=== PATIENT | male | born 1970 | race American Indian/Alaskan Native ===

== ENCOUNTER 2016-11-10 16:05 | Emergency (ER) | payer SELFPAY ==
[2016-11-10 16:28] VITALS: BP 194/105
[2016-11-10 16:45] LABS: Basophils % (Auto) 0.5 % (0.0-1.8); Eosinophils % (Auto) 0.8 % (0.0-4.3); Hematocrit 50.7 % (35.5-45.6); Hemoglobin 16.3 gm/dl (11.8-15.2); Mean Corpuscular HGB Conc 32 % (32-34); Mean Corpuscular Hemoglobin 29 pg (28-32); Mean Corpuscular Volume 91 fl (84-94); Red Blood Count 5.55 M/mm3 (3.65-5.03); Red Cell Distribution Width 12.7 % (13.2-15.2); White Blood Count 6.6 K/mm3 (4.5-11.0)
[2016-11-10 16:54] LABS: Platelet Count 195 K/mm3 (140-440)
[2016-11-10 17:08] LABS: Alanine Aminotransferase 35 units/L (7-56); Albumin 4.1 g/dL (3.9-5); Alkaline Phosphatase 65 units/L (35-129); Anion Gap 19 mmol/L; BUN/Creatinine Ratio 12.72; Blood Urea Nitrogen 14 mg/dL (9-20); Calcium 9.3 mg/dL (8.4-10.2); Carbon Dioxide 24 mmol/L (22-30); Chloride 98.8 mmol/L (98-107); Glucose 109 mg/dL (75-100); Lipase 23 units/L (13-60); Potassium 3.9 mmol/L (3.6-5.0); Sodium 138 mmol/L (137-145); Total Protein 8.1 g/dL (6.3-8.2)
[2016-11-10 17:34] LABS: Bilirubin,Urine NEG (Negative); Blood,Urine NEG (Negative); Ketones,Urine NEG (Negative); Leukocyte Esterase,Urine NEG (Negative); Nitrite,Urine NEG (Negative); Urobilinogen,Urine < 2.0 mg/dL (<2.0)
== END 2016-11-10 20:40 | disposition left against medical advice (07) ==
LOC: ED 16:05
DX: R10.30 Lower abdominal pain, unspecified (principal); Z53.21 Procedure and treatment not carried out due to patient leaving prior to being seen by health care provider
CPT/HCPCS: 36415; 80053; 81001; 83690; 85025

== ENCOUNTER 2020-11-25 13:29 | Emergency (ER) | payer SELFPAY ==
--- NOTE | 2020-11-25 14:28 | Emergency Department Report ---
ED CPR HPI - General Chief Complaint: Cardiac Arrest/CPR Stated Complaint: CARDIAC ARREST Time Seen by Provider: 11/25/20 14:10 Source: EMS Mode of arrival: Stretcher Limitations: Other - Related Data Home Medications Medication Instructions Recorded Confirmed Last Taken amLODIPine [Norvasc] 10 mg PO DAILY 06/13/15 06/13/15 Unknown hydrALAZINE [Apresoline] 25 mg PO DAILY 06/13/15 06/13/15 Unknown Previous Rx's Medication Instructions Recorded Last Taken Type Simvastatin (Nf) [Zocor TAB] 20 mg PO QHS #30 tablet 06/17/15 Unknown Rx labetaloL [Labetalol 200mg TAB] 300 mg PO QID #120 tablet 06/17/15 Unknown Rx levoFLOXacin [Levaquin TAB] 500 mg PO Q24HR #7 tablet 06/17/15 Unknown Rx metroNIDAZOLE [Flagyl TAB] 500 mg PO Q8HR #21 tablet 06/17/15 Unknown Rx Allergies Allergy/AdvReac Type Severity Reaction Status Date / Time lisinopril Allergy Angioedema Verified 06/12/15 21:15 ED Review of Systems ROS: Stated complaint: CARDIAC ARREST Other details as noted in HPI ED Past Medical Hx - Past Medical History Hx Hypertension: Yes Hx Seizures: Yes Additional medical history: AAA, diverticulitis - Social History Smoking Status: Never Smoker Substance Use Type: Alcohol - Medications Home Medications: Home Medications Medication Instructions Recorded Confirmed Last Taken Type amLODIPine [Norvasc] 10 mg PO DAILY 06/13/15 06/13/15 Unknown History hydrALAZINE [Apresoline] 25 mg PO DAILY 06/13/15 06/13/15 Unknown History Simvastatin (Nf) [Zocor TAB] 20 mg PO QHS #30 tablet 06/17/15 Unknown Rx labetaloL [Labetalol 200mg TAB] 300 mg PO QID #120 tablet 06/17/15 Unknown Rx levoFLOXacin [Levaquin TAB] 500 mg PO Q24HR #7 tablet 06/17/15 Unknown Rx metroNIDAZOLE [Flagyl TAB] 500 mg PO Q8HR #21 tablet 06/17/15 Unknown Rx ED Physical Exam - General Limitations: Other Critical care attestation.: If time is entered above; I have spent that time in minutes in the direct care of this critically ill patient, excluding procedure time. ED Disposition Condition: Stable
--- NOTE | 2020-11-25 14:29 | Emergency Department Report ---
ED General Adult HPI - General Chief complaint: Cardiac Arrest/CPR Stated complaint: CARDIAC ARREST Time Seen by Provider: 11/25/20 14:10 Source: EMS Mode of arrival: Stretcher Limitations: Other - Related Data Home Medications Medication Instructions Recorded Confirmed Last Taken amLODIPine [Norvasc] 10 mg PO DAILY 06/13/15 06/13/15 Unknown hydrALAZINE [Apresoline] 25 mg PO DAILY 06/13/15 06/13/15 Unknown Previous Rx's Medication Instructions Recorded Last Taken Type Simvastatin (Nf) [Zocor TAB] 20 mg PO QHS #30 tablet 06/17/15 Unknown Rx labetaloL [Labetalol 200mg TAB] 300 mg PO QID #120 tablet 06/17/15 Unknown Rx levoFLOXacin [Levaquin TAB] 500 mg PO Q24HR #7 tablet 06/17/15 Unknown Rx metroNIDAZOLE [Flagyl TAB] 500 mg PO Q8HR #21 tablet 06/17/15 Unknown Rx Allergies Allergy/AdvReac Type Severity Reaction Status Date / Time lisinopril Allergy Angioedema Verified 06/12/15 21:15 ED Review of Systems ROS: Stated complaint: CARDIAC ARREST Other details as noted in HPI ED Past Medical Hx - Past Medical History Hx Hypertension: Yes Hx Seizures: Yes Additional medical history: AAA, diverticulitis - Social History Smoking Status: Never Smoker Substance Use Type: Alcohol - Medications Home Medications: Home Medications Medication Instructions Recorded Confirmed Last Taken Type amLODIPine [Norvasc] 10 mg PO DAILY 06/13/15 06/13/15 Unknown History hydrALAZINE [Apresoline] 25 mg PO DAILY 06/13/15 06/13/15 Unknown History Simvastatin (Nf) [Zocor TAB] 20 mg PO QHS #30 tablet 06/17/15 Unknown Rx labetaloL [Labetalol 200mg TAB] 300 mg PO QID #120 tablet 06/17/15 Unknown Rx levoFLOXacin [Levaquin TAB] 500 mg PO Q24HR #7 tablet 06/17/15 Unknown Rx metroNIDAZOLE [Flagyl TAB] 500 mg PO Q8HR #21 tablet 06/17/15 Unknown Rx ED Physical Exam - General Limitations: Other Critical care attestation.: If time is entered above; I have spent that time in minutes in the direct care of this critically ill patient, excluding procedure time. ED Disposition Condition: Stable
--- NOTE | 2020-11-25 14:30 | Emergency Department Report ---
ED CPR HPI - General Chief Complaint: Cardiac Arrest/CPR Stated Complaint: CARDIAC ARREST Time Seen by Provider: 11/25/20 14:10 Source: EMS Mode of arrival: Stretcher Limitations: Other - History of Present Illness Initial Comments: This is a 50-year-old male who arrives in asystole after unsuccessful prolonged resuscitative efforts. He is pronounced DOA. Medics informed me that the patient was last seen by a friend or family 15 minutes prior to EMS call. They arrived to find the patient in asystole. According to the medics, they were informed that the patient had a history of seizures and had a "seizure" prior to their arrival. Subsequently he became completely unresponsive. According to medics no other medical history was referred. They stated there was a question regarding the patient's compliance for his medications. Review of the previous EMR indicated that the patient actually did have a much more complex medical history to include type B aortic dissection, hypertension and diverticulitis. His discharge summary in 2014 indicated: Hospitalization Condition: Fair Hospital course: 44 YO Male admitted for diverticulitis, chronic type B aortic dissection, Accelerated hypertension secondary to medication noncompliance, and back pain. Pt treated with bowel rest and IV abx therapy, bowel rest and supportive care. GI team consulted. Vascular surgery consulted for aortic dissection. Pt systolic blood pressure did not respond to initial therapy and patient was subsequently transferred to ICU and placed on labetolol drip with goal systolic BP around 120. Pt was then transitioned to oral labetolol with control of systolic BP within goal range. Pt subsequently transferred to medical floor. Pt ab pain resolved with therapy, and patient restarted on oral diet. Pt medically optimized and back to usual state of health. Pt evaluated prior to discharge but no significant new physical exam findings. Pt discharged home and instructed to f/u pcp 1wk, GI prn, and to f/u with vascular surgery service as directed for reevaluation. No vascular intervention conducted during this admission du to location of chronic dissection flap. 35 minutes dedicated to patient discharge and education. Pt counseled regarding medication noncompliance. Pt informed the noncompliance and elevated blood pressure could result in dissection progression, renal dysfunction, and . Pt acknowledges understanding instructions. Disposition: DISCHARGED TO HOME OR SELFCARE - Discharge Diagnoses (1) Aortic dissection, thoracoabdominal Status: Acute (2) Diverticulitis Status: AcuteQualifiers: Diverticulitis site: large intestine Diverticulitis bleeding: without bleeding Diverticulitis complication: without perforation or abscess Qualifier Code: (K57.32) Diverticulitis of large intestine without perforation or abscess without bleeding (3) Abdominal pain Status: AcuteQualifiers: Abdominal location: generalized Qualifier Code: (R10.84) Generalized abdominal pain (4) Accelerated hypertension Status: Acute (5) Noncompliance Status: Acute (6) DVT prophylaxis Status: Acute At the time of the patient's arrival, the medics stated that he had received 4 additional doses of epinephrine and sodium bicarb as well. He had no return of spontaneous circulation for well more than 25 minutes. They stated that initially with 1 round of epinephrine there was a brief run of complexes which they thought were associated with a pulse. This episode only lasted for seconds. They proceeded to give multiple additional doses of epinephrine, insert a Baldomero air after unsuccessful direct laryngoscopy due to a massive amount of secretions. There was no further ROSC. Thus the patient arrived at this facility in asystole, fixed and dilated pupils and no signs of life after prolonged unsuccessful resuscitation. Obviously, further resuscitative efforts would be futile and the patient was pronounced. MD Complaint: seizure -: minute(s), hour(s) Place: home Bystander CPR Performed: No Initial Findings in the Field: unresponsive, systole (Asystole) ROSC in the Field: Yes (See above) Treatments Prior to Arrival: other airway device - Related Data Home Medications Medication Instructions Recorded Confirmed Last Taken amLODIPine [Norvasc] 10 mg PO DAILY 06/13/15 06/13/15 Unknown hydrALAZINE [Apresoline] 25 mg PO DAILY 06/13/15 06/13/15 Unknown Previous Rx's Medication Instructions Recorded Last Taken Type Simvastatin (Nf) [Zocor TAB] 20 mg PO QHS #30 tablet 06/17/15 Unknown Rx labetaloL [Labetalol 200mg TAB] 300 mg PO QID #120 tablet 06/17/15 Unknown Rx levoFLOXacin [Levaquin TAB] 500 mg PO Q24HR #7 tablet 06/17/15 Unknown Rx metroNIDAZOLE [Flagyl TAB] 500 mg PO Q8HR #21 tablet 06/17/15 Unknown Rx Allergies Allergy/AdvReac Type Severity Reaction Status Date / Time lisinopril Allergy Angioedema Verified 06/12/15 21:15 ED Review of Systems ROS: Stated complaint: CARDIAC ARREST Other details as noted in HPI Comment: Unobtainable due to pts medical conditions ED Past Medical Hx - Past Medical History Hx Hypertension: Yes Hx Seizures: Yes Additional medical history: AAA, diverticulitis - Social History Smoking Status: Never Smoker Substance Use Type: Alcohol - Medications Home Medications: Home Medications Medication Instructions Recorded Confirmed Last Taken Type amLODIPine [Norvasc] 10 mg PO DAILY 06/13/15 06/13/15 Unknown History hydrALAZINE [Apresoline] 25 mg PO DAILY 06/13/15 06/13/15 Unknown History Simvastatin (Nf) [Zocor TAB] 20 mg PO QHS #30 tablet 06/17/15 Unknown Rx labetaloL [Labetalol 200mg TAB] 300 mg PO QID #120 tablet 06/17/15 Unknown Rx levoFLOXacin [Levaquin TAB] 500 mg PO Q24HR #7 tablet 06/17/15 Unknown Rx metroNIDAZOLE [Flagyl TAB] 500 mg PO Q8HR #21 tablet 06/17/15 Unknown Rx ED Physical Exam - General Limitations: Other General appearance: other (Unresponsive) - Head Head exam: Present: atraumatic - Eye Pupils: Present: other (Fixed and dilated) - ENT ENT exam: Present: other (Baldomero air present) - Neck Neck exam: Present: normal inspection - Respiratory Respiratory exam: Present: other (Air exchange noted on [id number] with Baldomero air) - Cardiovascular Cardiovascular Exam: Present: other (No heart sounds) - GI/Abdominal GI/Abdominal exam: Present: soft - Extremities Exam Extremities exam: Present: other (No acute deformity noted) - Neurological Exam Neurological exam: Present: other (No signs of neurological function) ED Course - Reevaluation(s) Reevaluation #1: Pronounced DOA. Asystole on the monitor. 11/25/20 14:37 11/25/20 14:37 Family will be counseled upon arrival. Awaiting charge nurse instruction. 11/25/20 14:37 Critical care attestation.: If time is entered above; I have spent that time in minutes in the direct care of this critically ill patient, excluding procedure time. ED Disposition Clinical Impression: Cardiac arrest Disposition: [id number] HOSPICE- MED FAC Is pt being admited?: No Does the pt Need Aspirin: No Condition: Stable Time of Disposition: 14:38
== END 2020-11-25 14:30 ==
LOC: ED 13:29
DX: I46.9 Cardiac arrest, cause unspecified (principal); I10 Essential (primary) hypertension; Z86.69 Personal history of other diseases of the nervous system and sense organs; Z72.89 Other problems related to lifestyle; Z88.8 Allergy status to other drugs, medicaments and biological substances; Z79.899 Other long term (current) drug therapy
CPT/HCPCS: 92950; 99285